=== PATIENT | female | born 1975 | race Caucasian/White ===

== ENCOUNTER 2018-04-29 07:05 | Emergency (ER) | payer BC ==
[2018-04-29 07:30] VITALS: BP 140/65
--- NOTE | 2018-04-29 07:38 | UC ---
Respiratory Complaint HPI - HPI Summary HPI Summary: The patient is a 42-year-old female with a 10 day history of facial pressure, nasal congestion, postnasal drip and cough. She has not had any fever or chills. Denies any chest pain or shortness of breath. She has had sinus surgery in the past. - History of Current Complaint Chief Complaint: UCRespiratory Stated Complaint: SINUSES,EARS Time Seen by Provider: 04/29/18 07:24 Hx Obtained From: Patient Hx Last Menstrual Period: 04/01 Onset/Duration: Gradual Onset, Lasting Weeks Timing: Constant Severity Initially: Mild Severity Currently: Moderate Pain Intensity: 3 Pain Scale Used: 0-10 Numeric Character: Cough: Nonproductive Aggravating Factors: Nothing Alleviating Factors: Nothing Associated Signs And Symptoms: Positive: URI, Nasal Congestion, Hoarseness, Sinus Discomfort - Allergies/Home Medications Allergies/Adverse Reactions: Allergies Allergy/AdvReac Type Severity Reaction Status Date / Time amoxicillin [From Augmentin] Allergy Swelling Verified 04/29/18 07:22 Of Face,Lips,& Throat clavulanic acid Allergy Swelling Verified 04/29/18 07:22 [From Augmentin] Of Face,Lips,& Throat codeine Allergy Hallucinations, Verified 04/29/18 07:22 severe vomiting Home Medications: Home Medications Atorvastatin* [Lipitor*] 10 mg PO QPM 04/29/18 [History Confirmed 04/29/18] Dm/P-Ephed/Acetaminoph/Doxylam [Graciela-Rippey Plus Cold+Flu Pkt] 1 each PO Q4H PRN 04/29/18 [History Confirmed 04/29/18] Guaifenesin/Dextromethorphan [Mucinex Dm ER 600-30 mg Tablet] 2 each PO Q12H [History Confirmed 04/29/18] Lisinopril TAB* [Prinivil TAB*] 5 mg PO QPM 04/29/18 [History Confirmed 04/29/18 ] Norethindrone-E.estradiol-Iron [Minastrin 24 Fe Chewable Tab] 1 each PO QPM [History Confirmed 04/29/18] Zolpidem TAB* [Ambien TAB*] 10 mg PO BEDTIME PRN 04/29/18 [History Confirmed ] PMH/Surg Hx/FS Hx/Imm Hx Previously Healthy: Yes Endocrine History: Dyslipidemia Cardiovascular History: Hypertension - Surgical History Surgical History: Yes Surgery Procedure, Year, and Place: SINUS - 2011. Rt FOOT - COSMETIC SURGERY - Family History Known Family History: Negative: Cardiac Disease, Hypertension, Diabetes, Respiratory Disease - Social History Alcohol Use: None Substance Use Type: None Smoking Status (MU): Former Smoker Review of Systems All Other Systems Reviewed And Are Negative: Yes Constitutional: Positive: Negative Skin: Positive: Negative Eyes: Positive: Negative ENT: Positive: Nasal Discharge, Sinus Congestion Respiratory: Positive: Cough Cardiovascular: Positive: Negative Gastrointestinal: Positive: Negative Genitourinary: Positive: Negative Motor: Positive: Negative Neurovascular: Positive: Negative Musculoskeletal: Positive: Negative Neurological: Positive: Negative Psychological: Positive: Negative Physical Exam Triage Information Reviewed: Yes Appearance: Well-Appearing, No Pain Distress, Well-Nourished Vital Signs: Initial Vital Signs Temp 97.9 F 04/29/18 07:27 Pulse 74 04/29/18 07:27 Resp 14 04/29/18 07:27 BP 140/65 04/29/18 07:27 Pulse Ox 99 04/29/18 07:27 Vital Signs Reviewed: Yes Eyes: Positive: Conjunctiva Clear ENT: Positive: Normal ENT inspection, Nasal congestion, Hoarse voice, Sinus tenderness, Uvula midline. Negative: Nasal drainage, Tonsillar swelling, Tonsillar exudate Neck: Positive: Supple, Nontender Respiratory: Positive: Lungs clear, Normal breath sounds, No respiratory distress, No accessory muscle use Cardiovascular: Positive: RRR, No Murmur Musculoskeletal: Positive: ROM Intact, No Edema Neurological: Positive: Alert Skin Exam: Normal UC Diagnostic Evaluation - Laboratory O2 Sat by Pulse Oximetry: 99 - normal/not hypoxic Respiratory Course/Dx - Differential Dx/Diagnosis Provider Diagnoses: acute sinusitis Discharge - Sign-Out/Discharge Documenting (check all that apply): Patient Departure All imaging exams completed and their final reports reviewed: No Studies - Discharge Plan Condition: Stable Disposition: HOME Prescriptions: Amoxicillin PO (*) [Amoxicillin 875 MG (*)] 875 mg PO BID #14 tab Fluticasone NASAL SPRAY 50MCG* [Flonase NASAL SPRAY 50MCG*] 2 spray BOTH NARES BID #1 btl Patient Education Materials: Sinusitis (ED) Referrals: Holly Ness PA [Primary Care Provider] - If Needed Additional Instructions: recheck for new or worsening symptoms use saline nasal spray (OTC) 2 sprays each nostril twice daily use flonase about 5 minutes later - Billing Disposition and Condition Condition: STABLE Disposition: Home
== END 2018-04-29 07:46 | disposition home or self-care (01) ==
LOC: UCCORT 07:05
DX: J01.90 Acute sinusitis, unspecified (principal); Z88.0 Allergy status to penicillin; Z88.8 Allergy status to other drugs, medicaments and biological substances; Z88.5 Allergy status to narcotic agent; I10 Essential (primary) hypertension; E78.5 Hyperlipidemia, unspecified; Z87.891 Personal history of nicotine dependence
CPT/HCPCS: 99212; G0463

== ENCOUNTER 2020-08-28 06:07 | Observation (INO) ==
[~2020-08-28 06:07] MED LIST: Buffered Lidocaine 1% SYRIN 1 ml INTRADERM ONE; Famotidine IV 10 MG/ML 2 ml VIAL (20 mg) IV ONE; Lactated Ringers 1000 ml BAG 1,000 ML IV SCH; Sodium Citrate/Citric Acid LIQ 15 ML UDC PO ONE
[2020-08-28] MEDS ORDERED: ceFAZolin 2 GM PREMIX 0 GM/0 ML BAG ONE (06:55)
[2020-08-28] MEDS ORDERED: Sodium Citrate/Citric Acid LIQ 15 ML UDC ONE (06:55)
[2020-08-28] MEDS ORDERED: Famotidine IV 10 MG/ML 2 ml VIAL (20 mg) ONE (06:55)
[2020-08-28] MEDS ORDERED: Clindamycin 900 MG/D5W BAG 900 MG/50 ML BAG IVPB ONE (07:00)
[2020-08-28] MEDS ORDERED: Succinylcholine 200 mg VIAL 20 mg/ml 10 ml VIAL (200 mg) ONE (07:51)
[2020-08-28] MEDS ORDERED: Propofol 10 MG/ML 20 ML BTL ONE ×2 (07:51→07:53)
[2020-08-28] MEDS ORDERED: Lidocaine 2% PF 5 ML VIAL ONE (07:53)
[2020-08-28] MEDS ORDERED: Dexamethasone IV 4 MG/ML VIAL 1 ml VIAL ONE (07:53)
[2020-08-28] MEDS ORDERED: Ondansetron 4 mg VIAL 2 MG/ML 2 ml VIAL ONE (07:53)
[2020-08-28] MEDS ORDERED: fentaNYL 250 mcg/5 ml 50 MCG/ML 5 ml VIAL (250 MCG) ONE (07:54)
[2020-08-28] MEDS ORDERED: Midazolam 2 mg/2 ml VIAL 1 mg/ml 2 ml VIAL (2 mg) ONE (07:55)
[2020-08-28] MEDS ORDERED: Rocuronium 50 mg VIAL 10 mg/ml 5 ml VIAL (50 mg) ONE ×2 (07:57→09:28)
[2020-08-28] MEDS ORDERED: Remifentanil 2 MG VIAL ONE (08:00)
[2020-08-28] MEDS ORDERED: Thrombin 5,000 UNITS 1 APPLIC KIT - topical use - TOPICAL ONE (08:04)
[2020-08-28] MEDS ORDERED: Vancomycin 1,000 MG VIAL ONE (08:04)
[2020-08-28] MEDS ORDERED: ceFAZolin VIAL VIAL ONE (08:04)
[2020-08-28] MEDS ORDERED: Bacitracin INJECTION 50,000 UNITS ONE (08:05)
[2020-08-28] MEDS ORDERED: Gelfoam Sponge SIZE 100 SPONGE ONE (08:05)
[2020-08-28] MEDS ORDERED: Bupivacaine 0.5% SDV PF 30ML VIAL ONE (08:05)
[2020-08-28] MEDS ORDERED: Esmolol 10 MG/ML 10 ML (100 mg) ONE (08:53)
[2020-08-28] MEDS ORDERED: diPHENhydraMINE IV 50 MG/ML 1 ml VIAL (BENADRYL) IV PRN (09:01)
[2020-08-28] MEDS ORDERED: Acetaminophen IV 1 GM/100ML 1,000 MG/100 ML VIAL IVPB PRN (09:01)
[2020-08-28] MEDS ORDERED: Naloxone 0.4 mg VIAL 0.4 mg/ml 1 ml VIAL IV PRN (09:01)
[2020-08-28] MEDS ORDERED: Ondansetron 4 mg VIAL 2 MG/ML 2 ml VIAL IV PRN ×2 (09:01→11:52)
[2020-08-28] MEDS ORDERED: fentaNYL 100 mcg/2 ml 50 MCG/ML VIAL IV PRN (09:01)
[2020-08-28] MEDS ORDERED: DiMENhydriNATE IV 50 mg/ml 1 ml VIAL IV PUSH PRN (09:01)
[2020-08-28] MEDS ORDERED: HYDROmorphone 1 MG/1 ML SYRINGE IV PRN (09:01)
[2020-08-28] MEDS ORDERED: Phenylephrine 40 mcg/mL 10mL (400mcg) SYRINGE ONE (09:25)
[2020-08-28] MEDS ORDERED: HYDROmorphone 1 MG/1 ML SYRINGE ONE (09:57)
[2020-08-28] MEDS ORDERED: Clindamycin VIAL 150 MG/ML VIAL (600 MG) ONE (10:00)
[2020-08-28] MEDS ORDERED: fentaNYL 100 mcg/2 ml 50 MCG/ML VIAL ONE ×2 (10:51→11:25)
[2020-08-28] MEDS ORDERED: Acetaminophen IV 1 GM/100ML 100 ML ONE (11:21)
[2020-08-28] MEDS ORDERED: Bacitracin OINTMENT TUBE ONE (11:36)
[2020-08-28] MEDS ORDERED: Polyethylene Glycol 3350 17 GM PACKET PO PRN (12:00)
[2020-08-28] MEDS ORDERED: NS 0.9% 1000 ml BAG 1,000 ML IV SCH (12:00)
[2020-08-28] MEDS ORDERED: Morphine 2 MG/ML SYRINGE IV PRN (12:02)
[2020-08-28] MEDS: Clindamycin 900 MG/D5W BAG 900 MG/50 ML BAG IVPB SCH (17:47)
[2020-08-28] MEDS: Cholecalciferol (VIT D3) 1,000 unit TAB PO SCH (20:35)
[2020-08-28] MEDS: Magnesium Hydroxide LIQ 30 ML UDC PO SCH (20:37)
[2020-08-28] MEDS: NORETHINDRONE E ESTRADIOL IRON PO SCH (21:18)
[2020-08-29] MEDS: Clindamycin 900 MG/D5W BAG 900 MG/50 ML BAG IVPB SCH ×4 (00:30→23:58)
[2020-08-29] MEDS: Polyethylene Glycol 3350 17 GM PACKET PO SCH (08:41)
[2020-08-29] MEDS: Magnesium Hydroxide LIQ 30 ML UDC PO SCH ×2 (08:41→20:09)
[2020-08-29] MEDS: Enoxaparin 40 MG/0.4 ML SYR SUBCUT SCH (08:42)
[2020-08-29] MEDS: Cholecalciferol (VIT D3) 1,000 unit TAB PO SCH (20:05)
[2020-08-29] MEDS: NORETHINDRONE E ESTRADIOL IRON PO SCH (20:09)
[2020-08-30 07:25] VITALS: BP 120/70
[2020-08-30] MEDS: Clindamycin 900 MG/D5W BAG 900 MG/50 ML BAG IVPB SCH (08:48)
[2020-08-30] MEDS: Enoxaparin 40 MG/0.4 ML SYR SUBCUT SCH (08:51)
[2020-08-30] MEDS: Magnesium Hydroxide LIQ 30 ML UDC PO SCH (08:52)
[2020-08-30] MEDS: Polyethylene Glycol 3350 17 GM PACKET PO SCH (08:52)
== END 2020-08-30 10:45 | disposition home or self-care (01) ==
LOC: OR 06:07 → INTOOBSV 11:52 → SSU 11:52
PROVIDERS: ADMIT Neurological Surgery; ATTEND Neurological Surgery

== ENCOUNTER 2023-02-08 05:49 | Inpatient (IN) ==
[~2023-02-08 05:49] MED LIST changes: -Buffered Lidocaine 1% SYRIN 1 ml INTRADERM ONE; +Clindamycin 300 MG/D5W BAG 300 MG/50 ML BAG IV SCH; +Clindamycin 600 MG/NS BAG(*) 600 MG/50 ML BAG IV SCH; -Famotidine IV 10 MG/ML 2 ml VIAL (20 mg) IV ONE; -Lactated Ringers 1000 ml BAG 1,000 ML IV SCH; +Naloxone 0.4 mg VIAL 0.4 mg/ml 1 ml VIAL IV PRN; +Ondansetron 4 mg VIAL 2 MG/ML 2 ml VIAL IV PRN; -Sodium Citrate/Citric Acid LIQ 15 ML UDC PO ONE; +fentaNYL 100 mcg/2 ml 50 MCG/ML VIAL IV PRN; +oxyCODONE/Acetamin 5/325 mg TAB PO PRN
[2023-02-08] MEDS ORDERED: Lactated Ringers 1000 ml BAG 1,000 ML IV SCH ×2 (06:00→11:00)
[2023-02-08] MEDS ORDERED: Buffered Lidocaine 1% SYRIN 1 ml INTRADERM ONE (06:00)
[2023-02-08] MEDS ORDERED: Clindamycin 300 MG/D5W BAG 300 MG/50 ML BAG IV ONE (06:06)
[2023-02-08] MEDS ORDERED: Clindamycin 600 MG/NS BAG(*) 600 MG/50 ML BAG ONE (06:06)
[2023-02-08 06:47] LABS: Rapid COVID-19 Molecular Undetected (Undetected)
[2023-02-08] MEDS ORDERED: Vancomycin 1,000 MG VIAL ONE (06:55)
[2023-02-08] MEDS ORDERED: Bupivacaine 0.5% 50 ML MDV VIAL ONE (06:55)
[2023-02-08] MEDS ORDERED: Midazolam 2 mg/2 ml VIAL 1 mg/ml 2 ml VIAL (2 mg) ONE ×2 (07:01→07:17)
[2023-02-08] MEDS ORDERED: fentaNYL 100 mcg/2 ml 50 MCG/ML VIAL ONE (07:17)
[2023-02-08] MEDS ORDERED: ROPIVACAINE 5 MG/ML 30 ML BTL (0.5%) ONE (07:19)
[2023-02-08] MEDS ORDERED: Magnesium Hydroxide LIQ 30 ML UDC PO PRN (10:46)
[2023-02-08] MEDS ORDERED: Morphine 2 MG/ML SYRINGE IV PRN (10:46)
[2023-02-08] MEDS ORDERED: Ondansetron ODT 4 mg TAB 4 MG TAB PO PRN (10:46)
[2023-02-08] MEDS ORDERED: Lactulose 30 ml UDC PO PRN (10:46)
[2023-02-08] MEDS ORDERED: Ondansetron 4 mg VIAL 2 MG/ML 2 ml VIAL IV PRN (10:46)
[2023-02-08] MEDS ORDERED: SEMAGLUTIDE 2.4 MG/0.75 ML SUBCUT SCH (11:00)
[2023-02-08] MEDS: Clindamycin 600 MG/NS BAG(*) 600 MG/50 ML BAG IV SCH ×2 (16:35→23:58)
[2023-02-08] MEDS: Magnesium Hydroxide LIQ 30 ML UDC PO SCH (20:42)
[2023-02-08] MEDS ORDERED: GABAPENTIN 1800 MG PO SCH (21:00)
[2023-02-08] MEDS ORDERED: GABAPENTIN 600 MG PO SCH (21:00)
[2023-02-09 06:28] LABS: Hematocrit 34.8 % (35-45); Mean Platelet Volume 7.4 fL (7.5-11.2); Platelet Count 258 10^3/uL (150-450)
[2023-02-09 06:46] LABS: Calcium 8.3 mg/dL (8.6-10.3); Creatinine, Serum 0.87 mg/dL (0.51-0.95); Potassium 4.4 mmol/L (3.5-5.0); eGFR CKD-EPI 82.1 (>60)
[2023-02-09] MEDS: Clindamycin 600 MG/NS BAG(*) 600 MG/50 ML BAG IV SCH (08:19)
[2023-02-09] MEDS: Magnesium Hydroxide LIQ 30 ML UDC PO SCH (08:26)
[2023-02-09] MEDS ORDERED: Vitamin THERAPEUTIC TAB PO SCH (09:00)
[2023-02-09 10:14] VITALS: BP 133/71
== END 2023-02-09 13:30 | disposition home or self-care (01) | DRG 302 ==
LOC: INTOOBSV 05:49 → AA 05:49 → SSU 10:46
PROVIDERS: ADMIT Orthopaedic Surgery; ATTEND Orthopaedic Surgery